=== PATIENT | female | born 1940 | race Caucasian/White ===

== ENCOUNTER → 2020-02-04 | Outpatient (CLI) | payer OTHER ==
[~2020-02-04] VITALS: Ht 165.1 cm; Wt 75.3 kg
[~2020-02-04] MED LIST: ACYCLOVIR 400400 MG PO; AMBEREN; APAP500 PO; ASA81BEC PO; ASPIRIN EC81 M1 PO; BENTYL 10 MG CA10 M1 PO; CALCIUM 500 WI1 EAC3 PO; CALCIUM 600 +1 EAC8 PO; CELEBREX 200 M200 MG PO; COLACE100 MG PO; ENDOCET 5-3251 EACH PO; GLUCOSAMINE &1 EACH PO; GLUCOSAMINE SU500 M1 PO; HYDROCODON-ACE1 EAC7 PO; ICAPS TABLET1 EACH PO; L-LYSINE500 M1 PO; LIDODERM1 EACH TOP; LISINOPRIL-HCT1 EAC1 PO; LISINOPRIL10 MG PO; LISINOPRIL20 MG PO; MULTIVITAMINS PO; NEURONTIN 300300 M1 PO; OMEGA-31000 MG PO; OXYBUTYNIN 5 MG5 M2 PO; PERCOCET 5-3251 EACH PO; PRESERVISION A1 EACH PO; PROLIA60 MG/1 ML SUBQ; PROTONIX40 M2 PO; SKELAXIN 800 M800 M1 PO; TOPROL XL100 MG PO; TYLENOL EXTRA500 MG PO; VESICARE10 M1 PO; ZOCOR20 MG PO
[2020-02-04 08:30] VITALS: BP 143/66
--- NOTE | 2020-02-04 09:03 | NUR ---
Pain Clinic Assessment: 1. History of Osteoarthritis: BACK HIPS RT KNEE History of Rheumatoid Arthritis: Not Applicable 2. Height: 5 ft. 5 in. 165.1 cm. Weight: 166.0 lb. oz. 75.297 kg. Patient's BMI: 27.6 3. Vital Signs: BP: 143/66 Pulse: 65 Resp: 18 Temp: 02 Sat: 100 ECG Mon: 4. Pain Intensity: 8 5. Fall Risk: Dizziness: N Needs help standing or walking: Y Fallen in the last 3 months: Y Fall risk comments: 6. Patient on Blood Thinner: None 7. History of Hypertension: Y 8. Opioid Therapy greater than 6 weeks: N Opiate Contract Signed: 9. Risk Assessment Tool Provided: LOW RISK 0/3 10. Functional Assessment Tool: 47/ 11. Recreational Drug Use: Never Drug Type: Tobacco Use: Never Smoker Tobacco Type: Amount or Packs/day: How Many Years: Alcohol Use: No Frequency: Quant:
--- NOTE | 2020-02-11 14:16 | HPC ---
[facility] [address] [place] [address] PAIN MANAGEMENT CONSULTATION Name: ROSHAN SOUSA Room #: REG [facility].#: [id number] Admission: 02/04/20 Attend Phys: Roger Hammer DO Discharge: Date of : 38 Report #: [id number] THIS REPORT FOR: cc: Eric Power MD, Jayne MD Johnson, James E. DO ~ DATE OF SERVICE: 02/04/2020 REFERRING PHYSICIAN: Eric Power MD CHIEF COMPLAINT: Low back and left buttock pain. HISTORY OF PRESENT ILLNESS: As you know, the patient is an 79-year-old female who reports a longstanding history of low back and left buttock pain. The patient has sought treatment through her primary care physician, which ultimately led to a referral to [facility]. The patient was seen by [facility] who ultimately progressed the patient towards an intrathecal pump implantation. The patient has intrathecal pump fluids running currently and at our visit of 01/23/2020, patient was describing left posterior hip and left leg pain, believed to be a combination of SI joint dysfunction and possible lumbar radiculopathy. She was subsequently referred to our clinic to undergo epidural injection under fluoroscopic guidance to determine if her symptoms would improve. The patient indicates today her pain is continuous with intermittent exacerbations. She describes the pain as burning, shooting, throbbing and stabbing. She places pain score at 8/10, daily average at 8/10, worst pain has been at 10/10. The patient states that walking and lifting exacerbate symptoms, sitting and repositioning tends to improve pain. She has been referred to our clinic by her neurosurgery team for interventional treatment such as epidural injections and possible sacroiliac joint injections on the left side. PAST MEDICAL HISTORY: Hypertension, chronic bladder infections, osteoarthritis, history of breast cancer, chronic constipation, coronary artery disease, scoliosis, non-Hodgkin's lymphoma, osteoporosis, macular degeneration, atrial fibrillation. PAST SURGICAL HISTORY: Tonsillectomy and adenoidectomy, cholecystectomy, mastectomy with breast reconstruction, hysterectomy, lumbar spine surgery x 3, section, permanent pacemaker implantation, left total hip revision, lumbar decompression and fusion, intrathecal pump implant, revision and replacement of intrathecal pump. SOCIAL HISTORY: The patient denies tobacco, alcohol, IV or illicit drug use. She is a retired nurse, retiring in 2005. She is not receiving workmen's [address] [address] PAIN MANAGEMENT CONSULTATION Name: ROSHAN SOUSA Room #: REG CLI Rose#: [id number] Admission: 02/04/20 Attend Phys: Roger Hammer DO Discharge: Date of : 39 Report #: [id number] compensation nor is she trying to obtain discrete benefits. She is not in litigation in regards to pain. She is accompanied by her , present in the room today. REVIEW OF SYSTEMS: Positive for fatigue and weakness, wearing corrective eyewear, cataracts, hearing loss with tinnitus, chronic sinus problems with rhinitis, shortness of breath with any type of activity, atrial fibrillation, palpitations, vomiting, diarrhea, frequent urination, nocturia, incontinence and dribbling to urine, change of force or stream in urination, sexual difficulty, lightheadedness and dizziness, changes in hair and nail texture, weakness, numbness and tingling sensations bilateral feet, tremors, bleeding and bruising tendencies, and anemia. All other review of systems negative per 12-point review of systems other than those listed in history of present illness. Pain impact score 47 of 70 indicating moderate to severe interference of daily activities secondary to pain. ALLERGIES: AMLODIPINE, TRAMADOL, GABAPENTIN. CURRENT MEDICATIONS: Docusate sodium 100 mg once a day, acetaminophen 500 mg 2 tabs 3 times a day, simvastatin 20 mg per day, pantoprazole 40 mg per day, Prolia 1 syringe subcutaneously as directed. Oxybutynin 5 mg per day, metoprolol 100 mg per day, Lidoderm patch apply topically q.12 hours, lysine 500 mg once a day, calcium carbonate 1 tab per day, dicyclomine 10 mg 4 times a day, aspirin 81 mg per day, acyclovir 400 mg twice a day, Percocet 5/325 one tab q.8 hours p.r.n. pain, gabapentin 300 mg morning, 300 mg at noon and 600 mg at night, VESIcare 10 mg per day, vitamin supplementation 1 tab per day, Skelaxin 800 mg t.i.d., lisinopril 10 mg per day, pantoprazole 40 mg per day, lisinopril/hydrochlorothiazide 20/12.5 mg once a day, celecoxib 200 mg once a day. IMAGING: None available. PQRS: The patient has known arthritic changes of the back, bilateral hips and knees. No rheumatoid arthritis. She is placing pain intensity at 8/10. She is a fall risk, but has not had a fall in the last 3 months. She is on blood thinners in the form of Eliquis and only stopped the medication 2 days ago. She is treated for hypertension. She is on chronic opioids, has a low opioid addiction potential based on assessment tool. Pain impact is 47/70, moderate to severe interference of daily activities secondary to pain. PHYSICAL EXAMINATION: VITAL SIGNS: Blood pressure 154/72, pulse 64, respiratory rate 20 and unlabored. The patient is 100% on room air. Height 5 feet 5 inches tall, weight 166 pounds, BMI calculated 27.6. GENERAL: Well-developed, well-nourished, well-hydrated 79-year-old female [facility] [address] [place] [address] PAIN MANAGEMENT CONSULTATION Name: MERRYROSHAN Room #: REG [facility].#: [id number] Admission: 02/04/20 Attend Phys: Roger Hammer DO Discharge: Date of : 39 Report #: [id number] appearing her stated age, pain is rated today as high as 8/10. HEENT: Normocephalic, atraumatic. Pupils equal, round and reactive. Speech appears fluent. The patient deemed a good historian. LUNGS: Clear, no wheeze, rhonchi or rales. CARDIOVASCULAR: Regular. No appreciable gallop, no rub. ABDOMEN: Soft, nontender, nondistended, mildly obese, normoactive bowel sounds. EXTREMITIES: Show no clubbing, no cyanosis. No appreciable edema. MUSCULOSKELETAL: Lower extremity strength is symmetrical, but deconditioned bilaterally. Seated straight leg raising is negative. Supine straight leg raising is positive. Gait is antalgic favoring right lower extremity. There is palpatory tenderness over the paraspinal musculature of lower lumbar spine and left SI joint. Deep palpation over the SI joint causes increase in pain. Ankle clonus is negative. Babinski is negative. ASSESSMENT: 1. Symptomatic lumbar radiculopathy. 2. Failed lumbar spine surgery. 3. Left sacroiliac joint pain. 4. Chronic intractable pain. PLAN: 1. Based on today's physical exam and history the patient has provided, the description the patient uses in regards to pain as well as location of symptoms, it would appear the patient is suffering from not only a lumbar radiculopathy, but also sacroiliac joint pain on the left side. The patient and I discussed at length today the options for treatment for both the lumbar radiculopathy and for her SI joint dysfunction. Following was discussed with the patient today. In regards to lumbar radiculopathy, we discussed treatment options, which would include physical therapy, stretching exercises, core strengthening and any potential weight loss the patient might be able to afford. We discussed medication management suggestions with the use of more neuropathic pain medications as she is on currently intrathecal Dilaudid. We discussed epidural injections for which the patient was referred to our clinic and ultimately surgical options. After reviewing risks and benefits of all proposed treatment options, the patient chose to begin with an epidural injection. The patient unfortunately did not stop her Eliquis in time for an epidural injection today. She stopped the medication 2 days ago, but is required to be off the medication 3 days based on LENA guidelines. The patient will make an appointment with us tomorrow to undergo the requested epidural injection. She will continue off the Eliquis until tomorrow where we will restart the medication assuming no complications. The patient is agreeable with plan. 2. In regards to the patient's sacroiliac joint dysfunction, we discussed treatment options with the patient today. We discussed physical therapy, stretching exercises and stretching techniques as a treatment course. This in conjunction with pelvic manipulation can be quite beneficial. We discussed [facility] [address] [place] [address] PAIN MANAGEMENT CONSULTATION Name: ROSHAN SOUSA Room #: REG ROSA Rose#: [id number] Admission: 02/04/20 Attend Phys: Roger Hammer DO Discharge: Date of : 39 Report #: [id number] intraarticular SI joint injections as well as percutaneous SI joint fusion as a treatment course. We also discussed more traditional surgical stabilization of the joint. After reviewing the risks and benefits of all proposed treatment options, the patient wished to delay treatment of the SI joint until which time she has a chance to determine if the epidural injection will benefit. 3. No medication changes made at today's visit. The patient will continue current medical therapy as previously prescribed except remaining off the Eliquis in preparation for epidural injection planned for tomorrow. 4. We wish to thank nurse practitioner, Thea Alonzo for the opportunity to see this patient in consultation. We will keep you apprised of her response to treatment with the requested interventional therapies. Again, we wish to thank you for the opportunity to see the patient in consultation. <ELECTRONICALLY SIGNED> By: Roger Hammer DO 02/11/20 1416 1221 1302 Roger Hammer DO /nt
== END ==
LOC: PAIN 06:50
PROVIDERS: ATTEND Anesthesiology Pain Medicine
DX: M54.12 Radiculopathy, cervical region (principal); G89.29 Other chronic pain; M53.3 Sacrococcygeal disorders, not elsewhere classified; M96.1 Postlaminectomy syndrome, not elsewhere classified; R10.2 Pelvic and perineal pain; Z88.8 Allergy status to other drugs, medicaments and biological substances; Z79.899 Other long term (current) drug therapy

== ENCOUNTER → 2020-02-05 | Outpatient (CLI) | payer OTHER ==
[~2020-02-05] VITALS: Ht 165.1 cm; Wt 75.3 kg
[2020-02-05 14:02] VITALS: BP 154/72
--- NOTE | 2020-02-05 14:13 | NUR ---
Pain Clinic Assessment: 1. History of Osteoarthritis: BACK HIPS RT KNEE History of Rheumatoid Arthritis: Not Applicable 2. Height: 5 ft. 5 in. 165.1 cm. Weight: 166.0 lb. oz. 75.297 kg. Patient's BMI: 27.6 3. Vital Signs: BP: 154/72 Pulse: 64 Resp: 20 Temp: 02 Sat: 100 ECG Mon: 4. Pain Intensity: 8 5. Fall Risk: Dizziness: N Needs help standing or walking: Y Fallen in the last 3 months: N Fall risk comments: 6. Patient on Blood Thinner: ELIQUIS 7. History of Hypertension: Y 8. Opioid Therapy greater than 6 weeks: N Opiate Contract Signed: 9. Risk Assessment Tool Provided: LOW RISK 0/3 10. Functional Assessment Tool: 47/ 11. Recreational Drug Use: Never Drug Type: Tobacco Use: Never Smoker Tobacco Type: Amount or Packs/day: How Many Years: Alcohol Use: No Frequency: Quant:
--- NOTE | 2020-02-11 14:16 | HPC ---
[facility] [address] PAIN MANAGEMENT CONSULTATION Name: ROSHAN SOUSA Room #: REG ROSA Rosalia.#: [id number] Admission: 02/05/20 Attend Phys: Roger Hammer DO Discharge: Date of : 39 Report #: [id number] THIS REPORT FOR: cc: Eric Power MD, Jayne MD Johnson, James E. DO ~ DATE OF SERVICE: 02/05/2020 CHIEF COMPLAINT: Low back pain and left lower extremity pain. HISTORY OF PRESENT ILLNESS: As you know, the patient is an 79-year-old female seen yesterday here at our clinic per the request of her neurosurgery team in regards to lumbar radiculopathy and left SI joint dysfunction. The patient has chosen to address her lumbar radicular symptoms initially with an epidural injection. She has been off her Effient for a total of 3 days today, which allows us to provide this injection based on LENA guidelines. She is placing her current pain score at around 8/10. She returns today in followup visit for the first in a series of requested lumbar epidural injections to address suspected lumbar radiculopathy. ALLERGIES: AMLODIPINE, TRAMADOL, GABAPENTIN. CURRENT MEDICATIONS: See chart. SOCIAL HISTORY: Unchanged from yesterday. No smoking, no alcohol, no illicit drug use. She is a retired nurse, retiring in 2005. IMAGING: No new imaging available. PQRS: The patient has known arthritic changes of the lumbar spine, bilateral hips and right knee, placing current pain score at 8/10. She is a fall risk, but has not had a fall in the last 3 months. She is on blood thinners, but has been off the medication for 3 days in preparation for today's procedure. She is treated for hypertension and is on chronic opioid. She has a low opiate addiction potential based on assessment tool. Pain impact is again 47/70, moderate to severe interference of daily activities secondary to pain. PHYSICAL EXAMINATION: VITAL SIGNS: Blood pressure 154/72, pulse 64, respiratory rate 20 and unlabored. The patient is 100% on room air. Height 5 feet 5 inches tall, weight 166 pounds, BMI calculated at 27.6. GENERAL: Well-developed, well-nourished, well-hydrated 79-year-old female appearing stated age, pain is rated today at 8/10. HEENT: Normocephalic, atraumatic. Pupils equal, round and reactive. Speech is fluent. [address] [address] PAIN MANAGEMENT CONSULTATION Name: ROSHAN SOUSA Room #: REG [facility]#: [id number] Admission: 02/05/20 Attend Phys: Roger Hammer DO Discharge: Date of : 39 Report #: [id number] EXTREMITIES: Show no clubbing, no cyanosis, no edema. MUSCULOSKELETAL: Palpatory tenderness over the paraspinal musculature of lower lumbar spine and left sacroiliac joint. Gait is antalgic favoring left lower extremity over right. Muscle bulk and tone appears symmetrical, but deconditioned bilaterally in lower extremities. ASSESSMENT: 1. Symptomatic lumbar radiculopathy. 2. Lumbosacral spondylosis with radiculopathy. 3. Failed lumbar spine surgery. 4. Left sacroiliac joint dysfunction. PLAN: 1. The patient has returned today in followup visit having discontinued her Eliquis for the final day, making 3 total days off the Eliquis, which now falls within the guidelines of LENA in regards to neural axial blockades and injections. We have advised the patient of the risks and the benefits of a lumbar epidural injection today. These risks include but are not necessarily limited to bleeding, bruising, infection, worsening pain, no relief of pain, also risk of temporary or permanent muscle weakness, temporary or permanent nerve damage, possible paralysis and . The patient states she understood and wished to proceed. 2. No medication changes made at today's visit. The patient will continue current medical therapy as prior prescribed. 3. We will see the patient back in followup visit for the next in a series of lumbar epidural injections under fluoroscopic guidance or to address her left sacroiliac joint dysfunction. We are hopeful the patient will see good and prolonged benefit with today's procedure. PROCEDURE NOTE DESCRIPTION OF PROCEDURE: L5-S1 left paramedian epidural steroid injection under fluoroscopic guidance. This is the first procedure of the first series that the patient is undergoing. After obtaining written consent, the patient was taken back to the fluoroscopy suite, placed in a prone position with pillow under the abdomen to decrease lumbar lordosis. The skin overlying the lumbosacral area was then prepped and draped in aseptic fashion. The L5-S1 vertebral interspace was then identified by AP fluoroscopy. The skin and subcutaneous tissue overlying the target site of injection was anesthetized with 3 mL 1% lidocaine. A 20-gauge 3-1/2 inch Tuohy needle was then advanced under fluoroscopic guidance towards the epidural space using a left paramedian approach. The epidural space was identified using loss of resistance to air technique. After negative [address] [address] PAIN MANAGEMENT CONSULTATION Name: ROSHAN SOUSA Room #: REG [facility]#: [id number] Admission: 02/05/20 Attend Phys: Roger Hammer DO Discharge: Date of : 39 Report #: [id number] aspiration for heme or cerebrospinal fluid, a total of 1 mL of Omnipaque was injected. A lumbar epidurogram was confirmed using both AP and lateral fluoroscopy. After negative aspiration for heme or cerebrospinal fluid, 5 mL of a solution containing 2 mL 40 mg per mL, 80 mg total triamcinolone along with 3 mL of lidocaine 1% was injected in increments. Contrast spread was noted at post-epidural space. The needle was then retracted approximately half way and needle tract flushed with 1 mL of 1% lidocaine. Needle was then removed. There were no apparent sensory or motor deficits in the lower extremity following the procedure. A sterile bandage was placed over the injection site. The heart rate, pulse, oximetry and blood pressure were continuously monitored after the procedure. There were no apparent complications. The patient tolerated the procedure well and was carefully escorted to the recovery room in stable condition. There were no apparent complications. After meeting discharge criteria, the patient was then discharged home. <ELECTRONICALLY SIGNED> By: Roger Hammer DO 02/11/20 1416 1226 1315 Roger Hammer DO /nt
== END ==
LOC: PAIN 07:02
PROVIDERS: ATTEND Anesthesiology Pain Medicine
DX: M54.5 Low back pain (principal); M47.27 Other spondylosis with radiculopathy, lumbosacral region; Z79.899 Other long term (current) drug therapy; Z88.8 Allergy status to other drugs, medicaments and biological substances; Z98.890 Other specified postprocedural states